=== PATIENT | female | born 1990 | race African-American/Black ===

== ENCOUNTER 2018-03-22 08:24 | Inpatient (IN) ==
[2018-03-22] MEDS ORDERED: MEPERIDINE 50 MG/1 ML VIAL IV PRN (09:30)
[2018-03-22 09:37] LABS: Basophils % 0.2 % (0.0-0.8); Eosinophils % 0.1 % (0.00-10.9); Hematocrit 35.5 VOL% (35.7-47.0); Hemoglobin 12.4 GM/DL (12.0-16.0); Immature Granulocytes % 1.1 %; Immature Granulocytes Absolute 0.18 #; Lymphocytes # 2.1 10*3/uL (1.4-4.0); Lymphocytes % 12.2 % (21.3-54.2); Mean Corpuscular HGB Conc 34.9 GM/DL (32-36); Mean Corpuscular Hemoglobin 28 PG (27-34); Mean Corpuscular Volume 80.5 FL (87-102); Mean Platelet Volume 10.6 FL (9.6-12.0); Monocytes # 1.5 10*3/uL (0.11-0.8); Monocytes % 8.7 % (1.7-12.7); Neutrophils # 13.1 10*3/uL (1.4-7.4); Neutrophils % 77.7 % (38.7-73.9); Platelet Count 206 T/CUMM (130-400); Red Blood Count 4.41 MC/CUMM (3.8-5.5); Red Cell Distribution Width 14.1 % (9.3-17.3); White Blood Count 16.9 T/CUMM (4-12)
[2018-03-22] MEDS: AMPICILLIN INJ 2,000 MG in SODIUM CHLORIDE 0.9% 100 ML IV SCH ×3 (09:44→22:03)
[2018-03-22] MEDS: LACTATED RINGERS 1,000 ML IV SCH ×2 (09:44→16:02)
[2018-03-22] MEDS: ONDANSETRON 4 MG/2 ML VIAL IV PRN ×2 (09:46→22:35)
[2018-03-22 09:53] LABS: Albumin 2.9 G/DL (3.4-5.0); Bilirubin,Total 0.6 MG/DL (0.2-1.0); Calcium 8.9 MG/DL (8.5-10.1); Osmolality,Calculated 268.8 MOS/KG (273-304); Potassium 3.5 MMOL/L (3.5-5.1); Total Protein 7.3 G/DL (6.4-8.3)
[2018-03-22 11:15] LABS: Apearance,Urine Slightly Hazy (Clear); Bacteria,Urine Occasional /HPF (Few); Bilirubin,Urine Negative (Negative); Blood, Urine Negative (Negative); Glucose,Urine (UA) Negative (Negative); Ketones,Urine 80 mg/dL (Negative); Mucus,Urine Many /LPF (Occasional); Nitrite,Urine Negative (Negative); Protein,Urine 30 MG/DL; RBC,Urine 1 /HPF (0-4); Squamous Epithelial Cell,Urine Occasional /HPF (0-10); Urine Color Yellow (Yellow); Urine Specific Gravity 1.019 (1.001-1.035); WBC,Urine 41 /HPF (0-6)
[2018-03-22] MEDS: BUTORPHANOL 2 MG/ML VIAL IV PRN ×2 (13:41→22:35)
[2018-03-22] MEDS ORDERED: PROMETHAZINE 25 MG/1 ML VIAL IM ONE (22:24)
[2018-03-22] MEDS ORDERED: OXYTOCIN/LR 20 UNIT/1,000 ML BAG IV ONE (22:37)
[2018-03-23] MEDS ORDERED: miSOPROStol 200 MCG TABLET ONE (00:02)
[2018-03-23] MEDS ORDERED: FAMOTIDINE 20 MG/2 ML VIAL IV ONE (00:46)
[2018-03-23] MEDS ORDERED: CITRIC ACID/SODIUM CITRATE 30 ML UDCUP PO ONE (00:46)
[2018-03-23] MEDS ORDERED: ceFAZolin 2,000 MG in PREMIX 1 EACH IV ONE (00:47)
[2018-03-23] MEDS ORDERED: OXYTOCIN/LR 20 UNIT/1,000 ML BAG IV ONE ×2 (01:20→01:51)
[2018-03-23] MEDS ORDERED: OXYTOCIN 10 UNIT/ML VIAL ONE (01:40)
[2018-03-23] MEDS ORDERED: LANOLIN 50% CREAM 0.3 OZ TUBE TOP PRN (01:51)
[2018-03-23] MEDS ORDERED: ACETAMINOPHEN 325 MG TABLET PO PRN (01:51)
[2018-03-23] MEDS ORDERED: HYDROCORTISONE 2.5% RECTAL CREAM 30 GM TUBE TOP PRN (01:51)
[2018-03-23] MEDS ORDERED: ONDANSETRON 4 MG/2 ML VIAL IV PRN (01:51)
[2018-03-23] MEDS ORDERED: BENZOCAINE 20%/MENTHOL 0.5% SPRAY 56 GM CAN TOP PRN (01:51)
[2018-03-23] MEDS ORDERED: BISACODYL 10 MG SUPP RECTAL PRN (01:51)
[2018-03-23] MEDS ORDERED: oxyCODONE/ACETAMINOPHEN 5-325 MG TABLET PO PRN ×2 (01:51)
[2018-03-23] MEDS ORDERED: WITCH HAZEL PADS 100/JAR TOP PRN (01:51)
[2018-03-23] MEDS ORDERED: IBUPROFEN 800 MG TABLET PO PRN (01:51)
[2018-03-23] MEDS ORDERED: MEASLES/MUMPS/RUBELLA VACCINE 0.5 ML VIAL SUBCUT ONE (01:51)
[2018-03-23] MEDS ORDERED: RHO(D) IMMUNE GLOBULIN 300 MCG SYRINGE IM ONE (01:51)
[2018-03-23] MEDS ORDERED: DIPH/TET/ACEL PERT BOOSTER VACCINE 0.5 ML VIAL IM ONE (01:51)
[2018-03-23] MEDS ORDERED: PROPOFOL 200 MG/20 ML VIAL IV ONE (02:06)
[2018-03-23] MEDS ORDERED: SEVOFLURANE 1 UNIT/15 MINUTE INH ONE (02:06)
[2018-03-23] MEDS ORDERED: fentaNYL 100 MCG/2 ML VIAL ONE (02:07)
[2018-03-23] MEDS ORDERED: SUCCINYLCHOLINE 200 MG/10 ML VIAL ONE (02:07)
[2018-03-23] MEDS ORDERED: MIDAZOLAM 2 MG/2 ML VIAL ONE (02:07)
[2018-03-23] MEDS ORDERED: ROCURONIUM 100 MG/10 ML VIAL IV ONE (02:07)
[2018-03-23] MEDS: cefOXitin 2,000 MG in SYRINGE 1 EACH IV SCH ×2 (03:40→09:41)
[2018-03-23 07:08] LABS: Basophils # 0.1 10*3/uL (0.0-0.2); Basophils % 0.3 % (0.0-0.8); Hematocrit 24.4 VOL% (35.7-47.0); Immature Granulocytes % 0.8 %; Immature Granulocytes Absolute 0.15 #; Lymphocytes # 1.9 10*3/uL (1.4-4.0); Lymphocytes % 10.6 % (21.3-54.2); Mean Corpuscular HGB Conc 36.9 GM/DL (32-36); Mean Corpuscular Hemoglobin 28 PG (27-34); Mean Corpuscular Volume 75.8 FL (87-102); Mean Platelet Volume 10.8 FL (9.6-12.0); Monocytes # 1.3 10*3/uL (0.11-0.8); Monocytes % 7.2 % (1.7-12.7); Neutrophils # 14.9 10*3/uL (1.4-7.4); Neutrophils % 81.1 % (38.7-73.9); Platelet Count 184 T/CUMM (130-400); Red Blood Count 3.22 MC/CUMM (3.8-5.5); Red Cell Distribution Width 13.4 % (9.3-17.3); White Blood Count 18.4 T/CUMM (4-12)
[2018-03-23 09:41] LABS: Anisocytosis 1+; Band Neutrophils 38 % (0-10); Lymphocytes 12 % (20-55); Segmented Neutrophils 46 % (50-85); Total Cells Counted 100
[2018-03-23 09:42] LABS: Platelet Estimate Normal
[2018-03-23] MEDS: DOCUSATE SODIUM 100 MG CAPSULE PO SCH ×2 (09:42→20:59)
[2018-03-24] MEDS: LACTATED RINGERS 1,000 ML IV SCH ×2 (01:51→01:52)
[2018-03-24] MEDS: DOCUSATE SODIUM 100 MG CAPSULE PO SCH (08:53)
[2018-03-24 11:36] VITALS: BP 100/59
== END 2018-03-24 11:40 | disposition home or self-care (01) | DRG 541 ==
LOC: N.LDOUT 08:24 → N.LD 08:27 → N.OB 03-23 02:30
PROVIDERS: ADMIT Obstetrics & Gynecology; ATTEND Obstetrics & Gynecology

== ENCOUNTER 2020-01-11 07:57 | Inpatient (IN) ==
[2020-01-11] MEDS ORDERED: MEPERIDINE 25 MG/1 ML VIAL IM ONE (08:57)
[2020-01-11] MEDS ORDERED: PROMETHAZINE 25 MG/1 ML VIAL IM ONE ×2 (08:57→10:33)
[2020-01-11] MEDS ORDERED: TERBUTALINE 1 MG/1 ML VIAL SUBCUT PRN (08:57)
[2020-01-11] MEDS ORDERED: LACTATED RINGERS 1,000 ML IV ONE ×2 (08:57→10:32)
[2020-01-11] MEDS ORDERED: ONDANSETRON 4 MG/2 ML VIAL IV PRN ×2 (10:29→20:39)
[2020-01-11] MEDS ORDERED: OXYTOCIN/LR 20 UNIT/1,000 ML BAG IV SCH (10:30)
[2020-01-11] MEDS ORDERED: LACTATED RINGERS 1,000 ML IV SCH ×2 (10:30→21:00)
[2020-01-11] MEDS ORDERED: FAMOTIDINE 20 MG/2 ML VIAL IV ONE (10:32)
[2020-01-11] MEDS ORDERED: CITRIC ACID/SODIUM CITRATE 30 ML UDCUP PO ONE (10:32)
[2020-01-11] MEDS ORDERED: hydrOXYzine HCL 25 MG/1 ML VIAL IM PRN (10:33)
[2020-01-11] MEDS ORDERED: diphenhydrAMINE 50 MG/1 ML VIAL IV PRN ×2 (10:33)
[2020-01-11] MEDS ORDERED: ePHEDrine 50 MG/ML AMP IV PRN (10:33)
[2020-01-11] MEDS ORDERED: NALOXONE 0.4 MG/ML VIAL IV PRN (10:33)
[2020-01-11 10:53] LABS: Basophils % 0.1 % (0.0-0.8); Eosinophils % 0.1 % (0.00-10.9); Hematocrit 31.3 VOL% (35.7-47.0); Immature Granulocytes % 0.5 %; Immature Granulocytes Absolute 0.06 #; Lymphocytes # 0.9 10*3/uL (1.4-4.0); Lymphocytes % 7.8 % (21.3-54.2); Mean Corpuscular HGB Conc 35.1 GM/DL (32-36); Mean Corpuscular Volume 76.5 FL (87-102); Mean Platelet Volume 10.2 FL (9.6-12.0); Monocytes % 7.1 % (1.7-12.7); Neutrophils % 84.4 % (38.7-73.9); Platelet Count 178 T/CUMM (130-400); Red Blood Count 4.09 MC/CUMM (3.8-5.5); Red Cell Distribution Width 14.3 % (9.3-17.3); White Blood Count 11.4 T/CUMM (4-12)
[2020-01-11] MEDS ORDERED: fentaNYL 2 MCG/ROPIV 0.2% EPID 100 ML EPIDURAL SCH (11:00)
[2020-01-11 11:31] LABS: Albumin 2.2 G/DL (3.4-5.0); Bilirubin,Total 1.6 MG/DL (0.2-1.0); Calcium 8.4 MG/DL (8.5-10.1); Osmolality,Calculated 271.7 MOS/KG (273-304); Total Protein 6.3 G/DL (6.4-8.3)
[2020-01-11 12:41] LABS: Barbiturates Screen,Urine Negative (Negative); Benzodiazepines Screen,Urine Negative (Negative); Cannabinoid Screen,Urine Positive (Negative); Opiate Screen,Urine Positive (Negative); Phencyclidine Screen,Urine Negative (Negative)
[2020-01-11] MEDS ORDERED: AMPICILLIN INJ 2,000 MG in SODIUM CHLORIDE 0.9% 100 ML IV ONE (14:21)
[2020-01-11] MEDS ORDERED: ACETAMINOPHEN 500 MG TABLET PO ONE (14:23)
[2020-01-11 14:31] LABS: Apearance,Urine CLEAR (Clear); Bilirubin,Urine Negative (Negative); Blood, Urine Small mg/dL (Negative); Glucose,Urine (UA) Negative (Negative); Hyaline Casts,Urine 1 /LPF (0-3); Ketones,Urine 80 mg/dL (Negative); Mucus,Urine Many /LPF (Occasional); Nitrite,Urine Negative (Negative); Protein,Urine Negative; RBC,Urine 5 /HPF (0-4); Squamous Epithelial Cell,Urine Occasional /HPF (0-10); Urine Color Yellow (Yellow); Urine Specific Gravity 1.012 (1.001-1.035); WBC,Urine 1 /HPF (0-6)
[2020-01-11] MEDS ORDERED: AMPICILLIN INJ 1,000 MG in SODIUM CHLORIDE 0.9% 100 ML IV SCH (18:30)
[2020-01-11] MEDS ORDERED: ceFAZolin 2,000 MG in PREMIX 1 EACH IV ONE (18:54)
[2020-01-11] MEDS ORDERED: METHYLERGONOVINE 0.2 MG/1 ML AMP ONE (19:34)
[2020-01-11] MEDS ORDERED: OXYTOCIN/LR 20 UNIT/1,000 ML BAG IV ONE ×2 (19:34→20:39)
[2020-01-11] MEDS ORDERED: miSOPROStoL 200 MCG TABLET ONE (19:34)
[2020-01-11] MEDS ORDERED: CARBOPROST TROMETHAMINE 250 MCG/ML AMP IM ONE (19:35)
[2020-01-11] MEDS ORDERED: OXYTOCIN 10 UNIT/ML VIAL ONE (19:35)
[2020-01-11] MEDS ORDERED: ACETAMINOPHEN INJ 1,000 MG in PREMIX 1 EACH IV ONE (20:13)
[2020-01-11] MEDS ORDERED: ACETAMINOPHEN 1,000 MG/100 ML VIAL IV ONE (20:21)
[2020-01-11 20:26] LABS: Cord Venous Blood HCO3 20.1 MMOL/L; Cord Venous Blood PO2 25.4 MMHG
[2020-01-11] MEDS ORDERED: ACETAMINOPHEN 325 MG TABLET PO PRN (20:39)
[2020-01-11] MEDS ORDERED: MAGNESIUM HYDROXIDE SUSP 30 ML UDCUP PO PRN (20:39)
[2020-01-11] MEDS ORDERED: RHO(D) IMMUNE GLOBULIN 300 MCG SYRINGE IM ONE (20:39)
[2020-01-11] MEDS ORDERED: fentaNYL 100 MCG/2 ML VIAL ONE (20:49)
[2020-01-11] MEDS: KETOROLAC 30 MG/1 ML VIAL IV PRN (21:30)
[2020-01-12] MEDS: ceFAZolin 1,000 MG in SYRINGE 1 EACH IV SCH ×2 (03:13→10:45)
[2020-01-12] MEDS: KETOROLAC 30 MG/1 ML VIAL IV PRN (03:14)
[2020-01-12 06:17] LABS: Basophils % 0.1 % (0.0-0.8); Hematocrit 29.4 VOL% (35.7-47.0); Hemoglobin 10.3 GM/DL (12.0-16.0); Immature Granulocytes % 0.7 %; Lymphocytes # 2.1 10*3/uL (1.4-4.0); Lymphocytes % 14.5 % (21.3-54.2); Mean Platelet Volume 10.4 FL (9.6-12.0); Monocytes % 7.1 % (1.7-12.7); Neutrophils % 77.6 % (38.7-73.9); Platelet Count 170 T/CUMM (130-400); Red Blood Count 3.87 MC/CUMM (3.8-5.5); Red Cell Distribution Width 14.5 % (9.3-17.3); White Blood Count 14.6 T/CUMM (4-12)
[2020-01-12] MEDS: SIMETHICONE CHEW 80 MG TABLET PO PRN (09:30)
[2020-01-12] MEDS: MULTIVITAMIN (PRENATAL) TABLET PO SCH (09:36)
[2020-01-12] MEDS: DOCUSATE SODIUM 100 MG CAPSULE PO SCH (09:36)
[2020-01-12] MEDS: METOCLOPRAMIDE 10 MG TABLET PO PRN ×2 (09:37→18:18)
[2020-01-12] MEDS: IBUPROFEN 800 MG TABLET PO PRN (15:02)
[2020-01-13] MEDS: DOCUSATE SODIUM 100 MG CAPSULE PO SCH ×2 (00:49→10:17)
[2020-01-13] MEDS: IBUPROFEN 800 MG TABLET PO PRN ×2 (10:17→19:40)
[2020-01-13] MEDS: MULTIVITAMIN (PRENATAL) TABLET PO SCH (10:17)
[2020-01-13] MEDS: SIMETHICONE CHEW 80 MG TABLET PO PRN (10:19)
[2020-01-14] MEDS: DOCUSATE SODIUM 100 MG CAPSULE PO SCH ×2 (03:46→08:27)
[2020-01-14] MEDS: SIMETHICONE CHEW 80 MG TABLET PO PRN (08:27)
[2020-01-14] MEDS: MULTIVITAMIN (PRENATAL) TABLET PO SCH (08:27)
[2020-01-14] MEDS: IBUPROFEN 800 MG TABLET PO PRN (08:28)
[2020-01-14 11:19] VITALS: BP 131/87
== END 2020-01-14 15:30 | disposition home or self-care (01) | DRG 540 ==
LOC: N.LDOUT 07:57 → N.LD 07:59 → N.OB 23:04
PROVIDERS: ADMIT Obstetrics & Gynecology; ATTEND Obstetrics & Gynecology
PROC: LDCSECT (ICD-10-PCS; 2020-01-11 19:40)